=== PATIENT | male | born 1960 | race Two or more races ===

== ENCOUNTER 2020-05-22 18:01 | Emergency (ER) | payer OTHER ==
[~2020-05-22] VITALS: Ht 175.3 cm; Wt 88.0 kg
[2020-05-22] MEDS ORDERED: FORTAMET1000 MG (18:27)
[2020-05-22] MEDS ORDERED: SYNTHROID75 MCG (18:28)
[2020-05-22] MEDS ORDERED: TRICOR145 MG (18:28)
[2020-05-22] MEDS ORDERED: CABERGOLINE0.5 MG (18:44)
[2020-05-22] MEDS ORDERED: MOTION RELIEF25 MG PO (20:09)
== END 2020-05-22 20:18 | disposition home or self-care (01) ==
LOC: ER 18:01
DX: R42 Dizziness and giddiness (principal)

== ENCOUNTER 2024-09-13 09:58 | Inpatient (IN) | payer OTHER ==
[~2024-09-13] VITALS: Ht 175.3 cm; Wt 75.3 kg
[~2024-09-13 09:58] MED LIST: CABERGOLINE0.5 MG; FORTAMET1000 MG; MOTION RELIEF25 MG PO; SYNTHROID75 MCG; TRICOR145 MG
--- NOTE | 2024-09-13 10:09 | NUR ---
PACIENTE ALERTA Y ORIENTADO X 3. REFIERE DOLOR ABDOMINAL HACEN VARIOS BUITRAGO.
[2024-09-13] MEDS ORDERED: CYMBALTA30 MG PO (10:17)
[2024-09-13] MEDS ORDERED: TRIJARDY XR 121 EACH PO (10:17)
[2024-09-13] MEDS ORDERED: LOSARTAN POTAS100 MG PO (10:17)
[2024-09-13] MEDS ORDERED: AMBIEN10 MG PO (10:18)
[2024-09-13] MEDS ORDERED: ROSUVASTATIN CA10 MG PO (10:18)
[2024-09-13] MEDS ORDERED: PLAVIX75 MG (10:18)
[2024-09-13] MEDS ORDERED: TOPROL XL50 M1 (10:18)
[2024-09-13] MEDS ORDERED: ONDANSETRON HCL 2 MG/ML VIAL IV STA (10:29)
--- NOTE | 2024-09-13 10:58 | NUR ---
SE ORIENTA PACIENTE SOBRE TX MEDICO Y EL MISMO REFIERE ENTENDER Y ACEPTAR CHARITY. SE PROCEDE A EXTRAER MUESTRAS DE LAB BAJO MEDIDAS ASEPTICAS. SE PROCEDE A CANALIZAR PACIENTE BAJO MEDIDAS ASEPTICAS. RADHA DE EDEMA Y ERITEMA. SE PROCEDE A ADMINISTRAR MEDICAMENTO NAA ORDEN MEDICA BAJO MEDIDAS ASEPTICAS.
[2024-09-13 11:12] LABS: BASO % 0.3 % (0.1-1.2); EOS # 0.04 (0.04-0.54); EOS % 0.7 % (0.7-7.0); LYMPH # 0.70 (1.18-3.74); LYMPH % 11.4 % (19.3-53.1); MEAN PLATELET VOLUME 9.80 fl (9.4-12.4); MONO # 0.64 (0.24-0.82); MONO % 10.4 % (4.7-12.5); NEUT # 4.71 (1.56-6.13); NEUT % 76.9 % (34.0-71.1); RED CELL DISTRIBUTION WIDTH 13.2 % (11.6-14.4)
[2024-09-13 11:37] LABS: ALT/SGPT 62.0 U/L (12-78); AST/SGOT 41.0 U/L (15-37); BILIRUBIN TOTAL 1.04 mg/dL (0.3-1.2); BUN CREA RATIO 10.0 (7.0-25.0); CREATININE SERUM 1.05 mg/dL (0.70-1.30); GFR 71.57; GLOBULINA 4.0 G/DL (2.4-3.5); GLUCOSE FASTING 125.0 mg/dL (65-100); OSMOLALITY SERUM 280.0 MOSM/KG (275-295)
[2024-09-13] MEDS ORDERED: 0.9 % SODIUM CHLORIDE 1,000 ML IV SCH ×2 (12:00→17:45)
[2024-09-13] MEDS ORDERED: CIPROFLOXACIN IN 5 % DEXTROSE 400 MG/200 ML PIGGYBAG IV ONE (13:15)
[2024-09-13] MEDS ORDERED: METRONIDAZOLE/SODIUM CHLORIDE 500 MG/100 ML PIGGYBACK IV ONE (13:15)
[2024-09-13 13:40] LABS: URINE APPEARANCE Clear; URINE BILIRRUBIN Negative (NEGATIVE); URINE BLOOD Negative; URINE COLOR Yellow; URINE LEUKOCYTE Negative; URINE NITRATE Negative; URINE PROTEIN Negative (NEGATIVE); URINE UROBILINOGEN 1.0 E.U./dl
[2024-09-13 13:41] LABS: URINE BACTERIA 5.9 uL (0.0-1933); URINE EPITHELIAL CELLS 2.4 uL (0.0-38.8); URINE RBC 9.6 uL (0.0-20.8); URINE WBC 3.9 uL (0.0-23.2)
[2024-09-13 13:48] LABS: URINE CAST 0.00 uL (0.0-1.40); URINE GLUCOSE >=1000 MG/DL (NEGATIVE); URINE KETONE 40 (NEGATIVE)
--- NOTE | 2024-09-13 14:24 | NUR ---
SE LE INSCERTA TUBO NASOGASTRICO A PTE EN FOSA DERECHO CON #16 Y SE LE COMNEZO CON ANTIBITICO DE FALGYL Y CIPRO. SE MANTIENE EN CONSULTA CON MEDICINA INTERNISTA.
--- NOTE | 2024-09-13 15:00 | NUR ---
SE REICE PACIENTE ALERTA Y ORIENTADO X 3 ESFERAS EN CAMA CON BARANDAS ELEVADAS POR SEGURIDAD. PRESENTANDO BUEN PATRON RESPIRATORIO. RECIBIENDO IV'S 0.9NSS BAJANDO A 150ML/HR POR VENOPUNCION EN ANTEBRAZO KEVIN AREA RADHA DE EDEMA Y ERITEMA. SONDA NASOGASTRICA EN FOSA NASAL DERECHA, SE OBSERVA RESIDUAL GASTRICO DE 100ML COLOR MALCOLM. SE ORIENTA SOBRE CONTINUIDAD DE TRATAMIENTO MEDICO, REFIERE ENTENDER. SE MANTIENE EN OBSERVACION POR CAMBIOS. PENDIENTE CONSULTA CON .
[2024-09-13] MEDS ORDERED: ENALAPRILAT DIHYDRATE 1.25 MG/ML VIAL IV ONE (17:00)
[2024-09-13] MEDS ORDERED: ENALAPRILAT DIHYDRATE 1.25 MG/ML VIAL IV PRN (17:45)
[2024-09-13] MEDS ORDERED: MORPHINE SULFATE 4 MG/ML CARTRIDGE IV PRN (17:45)
[2024-09-13] MEDS ORDERED: ONDANSETRON HCL 4 MG in 0.9 % SODIUM CHLORIDE 50 ML IV PRN (17:45)
[2024-09-13 18:41] VITALS: BP 138/66
[2024-09-13 19:02] LABS: INR 1.02
[2024-09-13 20:55] VITALS: BP 142/83; O2SAT 97
[2024-09-13] MEDS ORDERED: CIPROFLOXACIN IN 5 % DEXTROSE 200 ML IV SCH (21:00)
[2024-09-14 02:47] VITALS: BP 115/75; O2SAT 96
[2024-09-14] MEDS ORDERED: FAMOTIDINE/PF 20 MG in 0.9 % SODIUM CHLORIDE 8 ML IV PUSH SCH (09:00)
[2024-09-14] MEDS ORDERED: ENOXAPARIN SODIUM 40 MG/0.4 ML SYRINGE SUBCUTANEO SCH (09:00)
[2024-09-14 09:25] VITALS: BP 120/74
[2024-09-14 18:06] VITALS: BP 109/69
[2024-09-15 00:33] VITALS: BP 143/79
[2024-09-15 09:23] VITALS: BP 112/67; O2SAT 98
[2024-09-15 18:28] VITALS: BP 130/78
[2024-09-16 00:39] VITALS: BP 128/80; O2SAT 99
[2024-09-16] MEDS ORDERED: MORPHINE SULFATE 4 MG/ML VIAL IV ONE (09:40)
[2024-09-16] MEDS ORDERED: MORPHINE SULFATE 4 MG/ML CARTRIDGE IV PRN (11:15)
[2024-09-16 19:20] VITALS: BP 130/75
[2024-09-17 02:38] VITALS: BP 131/79; O2SAT 95
[2024-09-17 08:44] VITALS: BP 154/92; O2SAT 96
[2024-09-17 11:19] LABS: BASO % 0.3 % (0.1-1.2); EOS # 0.03 (0.04-0.54); EOS % 0.4 % (0.7-7.0); LYMPH # 0.82 (1.18-3.74); LYMPH % 11.6 % (19.3-53.1); MEAN PLATELET VOLUME 10.10 fl (9.4-12.4); MONO # 0.75 (0.24-0.82); MONO % 10.6 % (4.7-12.5); NEUT # 5.44 (1.56-6.13); NEUT % 76.8 % (34.0-71.1); RED CELL DISTRIBUTION WIDTH 13.0 % (11.6-14.4)
[2024-09-17 12:27] LABS: BUN CREA RATIO 13.0 (7.0-25.0); CREATININE SERUM 0.56 mg/dL (0.70-1.30); GFR 147.83; GLUCOSE FASTING 175.0 mg/dL (65-100); OSMOLALITY SERUM 280.0 MOSM/KG (275-295)
[2024-09-17 22:39] VITALS: BP 115/75
[2024-09-18 02:32] VITALS: BP 122/77; O2SAT 96
[2024-09-18 08:38] VITALS: BP 129/76; O2SAT 95
== END 2024-09-18 13:14 | disposition home or self-care (01) | DRG 336 ==
LOC: ER 09:58 → MEDJ 18:08
PROVIDERS: Emergency Medicine; General Practice; Surgery; ADMIT Internal Medicine; ATTEND Internal Medicine
PROC: BW21YZZ Computerized Tomography (CT Scan) of Abdomen and Pelvis using Other Contrast (ICD-10-PCS; 2024-09-13)
PROC: 0DJD0ZZ Inspection of Lower Intestinal Tract, Open Approach (ICD-10-PCS; 2024-09-16)
PROC: 0DN80ZZ Release Small Intestine, Open Approach (ICD-10-PCS; principal; 2024-09-16 09:15)
DX: K56.699 Other intestinal obstruction unspecified as to partial versus complete obstruction (principal); K57.12 Diverticulitis of small intestine without perforation or abscess without bleeding; E03.9 Hypothyroidism, unspecified; E78.5 Hyperlipidemia, unspecified; I10 Essential (primary) hypertension